=== PATIENT | female | born 1985 | race African-American/Black ===

== ENCOUNTER 2016-11-14 14:43 | Outpatient (CLI) | payer MEDICAID ==
--- NOTE | 2016-11-14 18:34 | ULT ---
OB ULTRASOUND: 11/14/16 HISTORY: Assess size and dates. FINDINGS: There is a single viable intrauterine . Gestational age by ultrasound evaluation is 20 week s, 1 day. Biometry measurements are consistent as noted below: BPD: 20 week, 3 day AC: 20 week, 2 day HC: 20 week, 1 day FL: 20 week, 5 day EFW: 347 grams. Amniotic fluid volume: Within normal range. RUDI recorded at 14.89 cm. heart rate: 132 beats per minute. Placenta: Anterior fundal. Presentation: Breech. The anatomy visualized appears unremarkable. Intracranial contents, four chamber heart, stomac h, kidneys, cord insertion, bladder, spine, face, three vessel cord and extremities were all identif ied. IMPRESSION: 20 week, 1 day gestation by ultrasound measurement. No abnormality identified. POS: JAN
== END 2016-11-14 14:44 | disposition home or self-care (01) ==
LOC: NAV ULT 14:43
PROVIDERS: ATTEND Family Medicine
DX: Z34.02 Encounter for supervision of normal first pregnancy, second trimester (principal); Z3A.20 20 weeks gestation of pregnancy
CPT/HCPCS: 76805